=== PATIENT | female | born 1935 | race Caucasian/White ===

== ENCOUNTER 2017-09-04 05:00 | Inpatient (IN) | payer OTHER, MEDICARE ==
[~2017-09-04] VITALS: Ht 170.2 cm; Wt 95.9 kg
--- NOTE | 2017-09-04 05:08 | ED DYSPNEA/ASTHMA COMPLAINT ---
History of Present Illness General Chief Complaint: Dyspnea (COPD, CHF, Other) Stated Complaint: SOB Source: patient, old records, EMS, [facility] Exam Limitations: no limitations Vital Signs & Intake/Output Vital Signs & Intake/Output Vital Signs Date Time Temp Pulse Resp B/P B/P Pulse O2 O2 Flow FiO2 Mean Ox Delivery Rate 09/04 0700 97.9 90 24 152/65 96 Nasal 2.0L Cannula 09/04 0515 96 Nasal 2.0L Cannula 09/04 0505 98.1 110 24 135/63 96 Nasal 2.0L Cannula Allergies Coded Allergies: No Known Allergies (03/04/17) Reconcile Medications Arformoterol Tartrate (Brovana) 15 MCG/2 ML VIAL.NEB 2 ML NEB BID COPD ( Reported) Aspirin (Aspirin*) 81 MG TAB.CHEW 1 TAB PO DAILY PROPHYLAXIS (Reported) Atorvastatin Calcium 80 MG TABLET 1 TAB PO DAILY HIGH CHOLESTEROL (Reported) Budesonide (Pulmicort) 0.5 MG/2 ML AMPUL.NEB 1 Vial INH/JULIA BID COPD ( Reported) Clopidogrel Bisulfate (Plavix) 75 MG TABLET 1 TAB PO DAILY PROPHYLAXIS ( Reported) Furosemide (Lasix) 40 MG TABLET 1 TAB PO DAILY CHF (Reported) Insulin Regular (Novolin R Inj) 1,000 UNITS/10 ML NATY 0 UNITS SC SEE ADMIN CRITERIA DIABETES (Reported) Lactulose 10 GRAM/15 ML SOLUTION 30 ML PO BID LAXATIVE (Reported) Melatonin 3 MG TABLET 1 TAB PO QPM INSOMNIA (Reported) Mirtazapine 7.5 MG TABLET 1 TAB PO QPM DEPRESSION (Reported) Montelukast Sodium (Singulair) 10 MG TABLET 1 TAB PO DAILY ALLERGIES ( Reported) Nebivolol HCl (Bystolic) 2.5 MG TABLET 1 TAB PO DAILY HTN (Reported) Pantoprazole Sodium 40 MG TABLET.DR 1 TAB PO DAILY GERD (Reported) Roflumilast (Daliresp) 500 MCG TABLET 1 TAB PO DAILY COPD (Reported) Sennosides/Docusate Sodium (Senexon-S Tablet) 8.6 MG-50 MG TABLET 2 TAB PO DAILY CONSTIPATION (Reported) Triage Nurses Notes Reviewed? yes HPI: Patient was diagnosed with pneumonia yesterday. Patient received a gram of Rocephin IM and then was started on Levaquin. Tonight patient had increasing difficulty breathing. She denies any chest pain. Positive productive cough. No fevers or chills. Patient was given a nebulizer without relief so 911 was contacted. Patient received a DuoNeb en route and is currently feeling better however she still does feel short of breath. She denies any fevers or chills. There is no anorexia. There is no nausea or vomiting. Patient has O2 dependent COPD. (Kade DEE,Emanuel Lopez) Past History Travel History Traveled to [place] past 21 day No Medical History Any Pertinent Medical History? see below for history Neurological: DYSPHAGIA EENT: L EYE BLINDNESS Cardiovascular: CAD, CHF, hypertension, hyperlipidemia, PACEMAKER Respiratory: COPD Gastrointestinal: GERD Endocrine: TYPE I DM Surgical History Surgical History: non-contributory Psychosocial History What is your primary language Maori Tobacco Use: Quit >30 days ago ETOH Use: denies use Illicit Drug Use: denies illicit drug use Family History Hx Contributory? No (Emanuel Braun MD) Review of Systems Review of Systems Constitutional: Reports: no symptoms. EENTM: Reports: no symptoms. Respiratory: Reports: see HPI, cough, short of breath. Cardiovascular: Reports: no symptoms. GI: Reports: no symptoms. Genitourinary: Reports: no symptoms. Musculoskeletal: Reports: no symptoms. Skin: Reports: no symptoms. Neurological/Psychological: Reports: no symptoms. Hematologic/Endocrine: Reports: no symptoms. Immunologic/Allergic: Reports: no symptoms. All Other Systems: Reviewed and Negative (Kade DEE,Emanuel Lopez) Physical Exam Physical Exam General Appearance: well developed/nourished, alert, awake, moderate distress Head: atraumatic, normal appearance Eyes: Bilateral: PERRL, EOMI. Ears, Nose, Throat: normal pharynx, normal ENT inspection, hearing grossly normal Neck: normal inspection, supple, full range of motion, JVD Respiratory: crackles, rhonchi, wheezing Cardiovascular: regular rate/rhythm, normal peripheral pulses Gastrointestinal: normal bowel sounds, soft, non-tender, no organomegaly Extremities: normal capillary refill, pedal edema Neurologic/Psych: no motor/sensory deficits, awake, alert, oriented x 3, normal mood/affect Lymphatic: no anterior cervical puja Core Measures ACS in differential dx? No CVA/TIA Diagnosis No Sepsis Present: No Sepsis Focused Exam Completed? No (Emanuel Braun MD) Progress Differential Diagnosis: asthma, bronchitis, CHF, COPD, pulmonary embolism, pneumonia Plan of Care: Orders Procedure Date/time Status Regular Diet 09/04 B Active Patient Data 09/04 840 Active OXYGEN SETUP (GEN) 09/05 823 Active Saline Lock 09/05 823 Active Admit to inpatient 09/05 823 Active Vital Signs 09/05 823 Active Activity/Ambulation 09/05 823 Active Code Status 09/05 823 Active BLOOD CULTURE 09/04 654 Active BLOOD CULTURE 09/05 651 Active TYPE & SCREEN (NOT X-MATCH) 09/05 639 Active URINALYSIS 09/04 506 Active TROPONIN LEVEL 09/04 506 Complete COMPREHENSIVE METABOLIC PANEL 09/04 506 Complete CBC WITHOUT DIFFERENTIAL 09/04 506 Complete EKG 09/04 506 Active Laboratory Tests 09/04/17 0542: Anion Gap 13, Estimated GFR > 60, BUN/Creatinine Ratio 16.7, Glucose 86, Calcium 8.0 L, Total Bilirubin 0.6, AST 15, ALT 21, Alkaline Phosphatase 171 H, Troponin I < 0.01, Total Protein 4.9 L, Albumin 2.5 L, Globulin 2.4, Albumin/ Globulin Ratio 1.0 L, CBC w Diff MAN DIFF ORDERED, RBC 2.80 L, MCV 91.8, MCH 30.5, MCHC 33.2, RDW 14.6 H, MPV 7.2 L, Gran % 84.3 H, Lymphocytes % 10.0 L, Monocytes % 5.4, Eosinophils % 0.3, Basophils % 0, Absolute Granulocytes 13.3 H , Segmented Neutrophils 80 H, Absolute Lymphocytes 1.6, Lymphocytes 11 L, Monocytes 8, Absolute Monocytes 0.9 H, Eosinophils 1, Absolute Eosinophils 0.1, Absolute Basophils 0, Platelet Estimate ADEQUATE, Polychromasia 1+, Poikilocytosis 1+, Basophilic Stippling 1+, Ovalocytes 1+, Fld Total RBCs Counted 100 Microbiology 09/04 699 BLOOD: Blood Culture - RECD 09/05 651 BLOOD: Blood Culture - ORD 09/05 651 BLOOD: Blood Culture - ORD 09/04 649 BLOOD: Blood Culture - RECD Diagnostic Imaging: Viewed by Me: Radiology Read. Discussed w/RAD: Radiology Read. CXR Impression: PATIENT: TAYO DAIGLE PRESENT AGE: 82 PATIENT ACCOUNT NO: [id number] : 36 LOCATION: [facility] ORDERING PHYSICIAN: Emanuel Braun MD SERVICE DATE: 09/04/17 EXAM TYPE: RAD - XRY- PORTABLE CHEST XRAY EXAMINATION: XR PORTABLE CHEST CLINICAL INFORMATION: Productive cough. Shortness of breath. COMPARISON: Chest x-ray March 04, 2017 TECHNIQUE: Portable frontal view of the chest was obtained. 5:35 AM FINDINGS: Heart size enlarged. Pacemaker leads unchanged position in right atrium and right ventricle. There is calcifications of aortic arch. Lung volume is low. This causes crowding of the bronchovascular markings. There is perihilar density , greater on the right than the left, exaggerated also by the low inspiratory effort but underlying infiltrate in right upper lobe may be present as this is the area of maximal parenchymal density extending along the minor fissure. IMPRESSION: 1. Low inspiratory effort. Perihilar lung opacities, greater on right than left, which can be due to the low inspiratory effort but underlying infiltrate not excluded. 2. Enlarged heart. Pacemaker leads unchanged position since prior study. DICTATED BY: Donaldo Jean Baptiste MD DATE/TIME DICTATED:09/04/17599 BOOM CRANE OPERATOR:ERICH DATE/TIME TRANSCRIBED:09/04/17599 CONFIDENTIAL, DO NOT COPY WITHOUT APPROPRIATE AUTHORIZATION. <Electronically signed in Other Vendor System> SIGNED BY: Donaldo Jean Baptiste MD 09/04/17605 Initial ED EKG: NSR, LBBB, nonspecific ST T wave chg Prior EKG: unchanged Hand-Off Endorsed To: Charles Keating MD Endorsed Time: 699 Pending: other (HOSPITALIST CALL BACK) (Kade DEE,Emanuel Lopez) Departure Departure Disposition: STILL A PATIENT Condition: Stable Clinical Impression Primary Impression: COPD exacerbation Secondary Impressions: Anemia Referrals: Ricky Hull MD (PCP/Family) Departure Forms: Customer Survey General Discharge Information Admission Note Documentation of Exam: Documentation of any treatments & extenuating circumstances including Concerns Regarding Discharge (functional status, medication knowledge or non-compliance, living conditions, etc.) that warrant an admission rather than observation: [ Patient has been on antibiotics and if her symptoms are worsening. Patient has elevated white blood cell count. Patient is also anemic. Patient will need admission to the hospital for IV antibiotics, nebulizers, pulmonary consultation , respiratory treatments] (Emanuel Braun MD) Admission Note Spoke With: Nat DEE,Lucia Mcnamara Documentation of Exam: Documentation of any treatments & extenuating circumstances including Concerns Regarding Discharge (functional status, medication knowledge or non-compliance, living conditions, etc.) that warrant an admission rather than observation: (Rishabh DEE,Charles) Critical Care Note Critical Care Note Critical Care Time: non-applicable (Kade DEE,Emanuel Lopez)
[2017-09-04 05:51] LABS: ABSOLUTE BASOPHIL COUNT 0 /CUMM (0.0-0.2); ABSOLUTE EOSINOPHIL COUNT 0.1 /CUMM (0.0-0.7); ABSOLUTE GRANULOCYTE CT 13.3 /CUMM (1.4-6.5); ABSOLUTE LYMPH COUNT 1.6 /CUMM (1.2-3.4); ABSOLUTE MONOCYTE COUNT 0.9 /CUMM (0.10-0.60); BASOPHIL % 0 % (0.0-2.0); EOSINOPHIL % 0.3 % (0-5); GRANULOCYTE % 84.3 % (42.2-75.2); HEMATOCRIT 25.7 % (37-47); MEAN CORPUSCULAR HGB 30.5 PG (27.0-31.0); MEAN CORPUSCULAR HGB CONC 33.2 G/DL (33.0-37.0); MEAN CORPUSCULAR VOLUME 91.8 FL (81.0-99.0); MEAN PLATELET VOLUME 7.2 FL (7.4-10.4); PLATELET COUNT 271 /CUMM (130-400); RBC DISTRIBUTION WIDTH 14.6 % (11.5-14.5); WHITE BLOOD CELL COUNT 15.7 /CUMM (4.8-10.8)
[2017-09-04] MEDS ORDERED: NOVOLIN R100 UNIT/1 SC (06:01)
[2017-09-04] MEDS ORDERED: DALIRESP500 MC1 PO (06:02)
[2017-09-04] MEDS ORDERED: LASIX40 M1 PO (06:02)
[2017-09-04] MEDS ORDERED: LACTULOSE10 GM/153 PO (06:02)
[2017-09-04] MEDS ORDERED: ASPIRIN81 M4 PO (06:03)
[2017-09-04] MEDS ORDERED: BYSTOLIC2.5 M1 PO (06:03)
[2017-09-04] MEDS ORDERED: PLAVIX75 M1 PO (06:03)
[2017-09-04] MEDS ORDERED: PANTOPRAZOLE SO40 M1 PO (06:04)
[2017-09-04] MEDS ORDERED: BROVANA15 MCG/21 NEB (06:05)
[2017-09-04] MEDS ORDERED: PULMICORT0.5 MG/21 INH/SOL (06:06)
[2017-09-04] MEDS ORDERED: MELATONIN3 M4 PO (06:06)
--- NOTE | 2017-09-04 06:06 | RADIOLOGY REPORT ---
EXAMINATION: XR PORTABLE CHEST CLINICAL INFORMATION: Productive cough. Shortness of breath. COMPARISON: Chest x-ray March 04, 2017 TECHNIQUE: Portable frontal view of the chest was obtained. 5:35 AM FINDINGS: Heart size enlarged. Pacemaker leads unchanged position in right atrium and right ventricle. There is calcifications of aortic arch. Lung volume is low. This causes crowding of the bronchovascular markings. There is perihilar density, greater on the right than the left, exaggerated also by the low inspiratory effort but underlying infiltrate in right upper lobe may be present as this is the area of maximal parenchymal density extending along the minor fissure. IMPRESSION: 1. Low inspiratory effort. Perihilar lung opacities, greater on right than left, which can be due to the low inspiratory effort but underlying infiltrate not excluded. 2. Enlarged heart. Pacemaker leads unchanged position since prior study.
[2017-09-04] MEDS ORDERED: MIRTAZAPINE7.5 M1 PO (06:07)
[2017-09-04] MEDS ORDERED: ATORVASTATIN CA80 M1 PO (06:08)
[2017-09-04] MEDS ORDERED: SINGULAIR10 M1 PO (06:08)
[2017-09-04] MEDS ORDERED: SENEXON-S TABL1 EACH PO (06:08)
--- NOTE | 2017-09-04 09:52 | History & Physical ---
Ricci Glasgow 09/04/17 0951: General Information and HPI MD Statement: I have seen and personally examined TAYO DAIGLE and documented this H&P. The patient is a 82 year old F who presented with a patient stated chief complaint of [ shortness of breath.]. Source of Information: patient, family, [facility], nursing staff at [facility] Exam Limitations: dementia History of Present Illness: 82 year old woman from [facility],former smoker with left eye vision blindness, pmh significant for Alzheimer's, COPD on 3LNC, CAD s/p CA and stent placement in 2014 on aspirin and plavix, bradycardia s/p ppm on, CHF,HTN,HLD, T1DM, GERD, incontinent at baseline, sent from [facility] for evaluation of shortness of breath. Patient was unable to give much of the details. On interview she endorsed that she had trouble breathing. Denied any chest pain/palpitations, abdominal pain. Per W10 patient was having worsening shortness of breath for which a CXR was done yesterday showing U/L infiltrate and she received a gram of Rocephin IM and then was started on Levaquin (one dose). Despite nebulization she continued to have difficulty breathing. Per nursing staff from [place] there is no documented fever however her daughter was informed she spiked a fever of 101 on sunday. At baseline she is forgetful, most of the days she is bedbound by choice as she complains of chronic back pain. When she does get up she is wheelchair bound. Apparently has good fluid intake but has poor appetite. Her last BM was yesterday. Allergies/Medications Allergies: Coded Allergies: No Known Allergies (03/04/17) Home Med list Arformoterol Tartrate (Brovana) 15 MCG/2 ML VIAL.NEB 2 ML NEB BID COPD ( Reported) Aspirin (Aspirin*) 81 MG TAB.CHEW 1 TAB PO DAILY PROPHYLAXIS (Reported) Atorvastatin Calcium 80 MG TABLET 1 TAB PO DAILY HIGH CHOLESTEROL (Reported) Budesonide (Pulmicort) 0.5 MG/2 ML AMPUL.NEB 1 Vial INH/JULIA BID COPD ( Reported) Clopidogrel Bisulfate (Plavix) 75 MG TABLET 1 TAB PO DAILY PROPHYLAXIS ( Reported) Furosemide (Lasix) 40 MG TABLET 1 TAB PO DAILY CHF (Reported) Insulin Regular (Novolin R Inj) 1,000 UNITS/10 ML NATY 0 UNITS SC SEE ADMIN CRITERIA DIABETES (Reported) Lactulose 10 GRAM/15 ML SOLUTION 30 ML PO BID LAXATIVE (Reported) Melatonin 3 MG TABLET 1 TAB PO QPM INSOMNIA (Reported) Mirtazapine 7.5 MG TABLET 1 TAB PO QPM DEPRESSION (Reported) Montelukast Sodium (Singulair) 10 MG TABLET 1 TAB PO DAILY ALLERGIES ( Reported) Nebivolol HCl (Bystolic) 2.5 MG TABLET 1 TAB PO DAILY HTN (Reported) Pantoprazole Sodium 40 MG TABLET.DR 1 TAB PO DAILY GERD (Reported) Roflumilast (Daliresp) 500 MCG TABLET 1 TAB PO DAILY COPD (Reported) Sennosides/Docusate Sodium (Senexon-S Tablet) 8.6 MG-50 MG TABLET 2 TAB PO DAILY CONSTIPATION (Reported) Compliance With Home Meds: GOOD Past History Travel History Traveled to [place] past 21 day No Medical History Neurological: DYSPHAGIA EENT: L EYE BLINDNESS Cardiovascular: CAD, CHF, hypertension, hyperlipidemia, PACEMAKER Respiratory: COPD Gastrointestinal: GERD Endocrine: TYPE I DM Isolation History: Standard Surgical History Surgical History: non-contributory Past Family/Social History Family History Relations & Conditions if any Relation not specified for: *No pertinent family history Psychosocial History ETOH Use: denies use Illicit Drug Use: denies illicit drug use Review of Systems Review of Systems Constitutional: Reports: see HPI. Exam & Diagnostic Data Last 24 Hrs of Vital Signs/I&O Vital Signs Date Time Temp Pulse Resp B/P B/P Pulse O2 O2 Flow FiO2 Mean Ox Delivery Rate 09/04 0919 83 20 132/88 98 Room Air 09/04 0700 97.9 90 24 152/65 96 Nasal 2.0L Cannula 09/04 0515 96 Nasal 2.0L Cannula 09/04 0505 98.1 110 24 135/63 96 Nasal 2.0L Cannula Intake & Output 09/04 1600 09/04 0800 09/04 0000 Intake Total 0 Output Total Balance 0 Intake, Oral 0 Patient 204 lb Weight Weight Reported by Patient Measurement Method Physical Exam General Appearance Alert, oriented X2 Skin circular ? implants on right upper back Skin Temp/Moisture Exam: Cool/Dry HEENT Atraumatic, left pupil size less that right pupil, very dry mucous membranes Neck Supple, No JVD Lymphatic Cervical nl Cardiovascular Regular Rate, Normal S1, Normal S2 Lungs b/l rhonchi, bibasilar crackles, scattered wheeze Abdomen Normal Bowel Sounds, Soft, diffuse tenderness to palpation ( pt complained wherever i put small pressure) Neurological Normal Speech, Normal Tone, Sensation Intact, Cranial Nerves 3-12 NL, strength 4/5 x4 ext Extremities No Edema, Normal Pulses Last 24 Hrs of Labs/Harris: Laboratory Tests 09/04/17 0542: Anion Gap 13, Estimated GFR > 60, BUN/Creatinine Ratio 16.7, Glucose 86, Calcium 8.0 L, Iron 26 L, TIBC 164 L, Ferritin Pending, Total Bilirubin 0.6, AST 15, ALT 21, Alkaline Phosphatase 171 H, Troponin I < 0.01, Uax-Z-Ernoqtmaspj Pept Pending, Total Protein 4.9 L, Albumin 2.5 L, Globulin 2.4, Albumin/Globulin Ratio 1.0 L, CBC w Diff MAN DIFF ORDERED, RBC 2.80 L, MCV 91.8, MCH 30.5, MCHC 33.2, RDW 14.6 H, MPV 7.2 L, Gran % 84.3 H, Lymphocytes % 10.0 L, Monocytes % 5.4, Eosinophils % 0.3, Basophils % 0, Absolute Granulocytes 13.3 H, Segmented Neutrophils 80 H, Absolute Lymphocytes 1.6, Lymphocytes 11 L, Monocytes 8, Absolute Monocytes 0.9 H, Eosinophils 1, Absolute Eosinophils 0.1, Absolute Basophils 0, Platelet Estimate ADEQUATE, Polychromasia 1+, Poikilocytosis 1+, Basophilic Stippling 1+, Ovalocytes 1+, Fld Total RBCs Counted 100 Microbiology 09/04 1015 URINE ROUT: Legionella Antigen - COLB 09/04 1015 URINE ROUT: Streptococcus pneumoniae Antigen (M - COLB 09/04 0700 BLOOD: Blood Culture - RECD 09/04 0652 BLOOD: Blood Culture - ORD 09/04 0652 BLOOD: Blood Culture - ORD 09/04 0650 BLOOD: Blood Culture - RECD Diagnostic Data EKG Results Sinus, LBBB, Qtc 538 HR 110 CXR Results enlarged heart, pacemaker leads aortic arch calcification perihilar density R>L Assessment/Plan Assessment: 82 year old woman from [facility],former smoker with left eye vision blindness, pmh significant for Alzheimer's, COPD on 3LNC, CAD s/p CA and stent placement in 2015 on aspirin and plavix, bradycardia s/p ppm on, CHF,HTN,HLD, T1DM, GERD, incontinent at baseline, sent from [facility] for evaluation of shortness of breath. Sent from [facility] for Worsening shortness of breath. ED was afebrile, labs significant for leukocytosis with left shift, normocytic anemia, corrected calcium 8.8, ALP 171, proBNP 1150 . CXR significant for perihilar density R>L with underlying infiltrate. Assessement and plan Shortness of breath: Acute chronic COPD 2/2 to HCAP Will admit to gen med floor vitals per protocol TRC, supplemental o2,nebs q4hrs, continue symbicort, daliresp was given 125 mg solu medrol in ED, will continue with 60mg IV q12 will start IV unasyn 3g q6 f/up sputum/blood cultures, strep/urinary antigen Per [facility] staff, pt was seen by Dr. Felipe at [facility] in the past. Acute on chronic anemia could contribute to her shortness breath f/up iron studies, guaic stool CAD/CHF continue aspirin plavix, bisystolic continue lasix pt sees Dr. Chapin group, please obtain records for echo if possible Hyponatremia likely 2/2 to dehydration, encourage PO intake Isolated increased ALP given her symptoms of diffuse chronic pain and back pain, in the setting of advanced age and immobility paget's d/s is a possiblity, however further work up is needed if this is a concern. T1DM accuchecks, ISS CC3 diet DVt ppx sc lovenox DNR/DNI her daughter Jacobo Edwards has been updated and informed of her admission. She will be away for a few days. She can be reached at [phone] As Ranked By This Provider Problem List: 1. COPD exacerbation 2. Anemia Core Measures/Misc (11/19) Acute Coronary Syndrome ACS Diagnosis: No Congestive Heart Failure Congestive Heart Failure Diagnosis Yes Cerebrovascular Accident CVA/TIA Diagnosis: No VTE (View Protocol) VTE Risk Factors Age>40 No Mechanical VTE Prophylaxis d/t N/A MechProphylax Ordered No VTE Pharm Prophylaxis d/t NA PharmProphylax ordered Sepsis (View protocol) Sepsis Present: No If YES complete Sepsis Event Note If YES complete Sepsis Event Note Bay Li MD 09/04/17 1334: Core Measures/Misc (11/19) Sepsis (View protocol) If YES complete Sepsis Event Note If YES complete Sepsis Event Note Attending MD Review Statement Attending Statement Attending MD Statement: examined this patient, discuss w/resident/PA/MONEY MANAGER, agreed w/resident/PA/MONEY MANAGER, reviewed EMR data (avail), reviewed images, amended to note Attending Assessment/Plan: The patient is an 82 yo female who is a resident at [facility] ([place]) with h/o COPD, chronic hypoxic respiratory failure (on 3L nasal), Alzheimer's dementia, CAD (s/ p CA & stent 2014 & pacer), DM, chronic anemia, GERD, HTN, CHF who presented in the ED with c/o dyspnea and cough. The patient is a poor historian. In the ED the patient received aerosol and IV Solumedrol. CXR showed possible infiltrate. The patient's family indicated that she had a temperature of [address] [facility] (was not documented by [facility]). Physical Exam: VS: T 98.1, P 110-90, R 24, BP 152/65, PO 96% 2L HEENT: eyes- PERRLA, EOMI lisa- no lesions Neck: no JVD/bruits Chest: bilateral rhonchi and wheeze Cor: RRR nl S1, S1 w/o murm Abd: BS+, soft, NT Ext: tr edema, pulses 1+ Neuro: alert, poor historian, non-focal exam (gait not tested) Labs/Tests- as above Impression/Plan: #Healthcare Acquired Pneumonia- patient with possible infiltrate on CXR, fever reported by family and leukocytosis with left shift. No recent infections. Plan: Will admit to general medicine. Rose culture- check serum lactate level (does not appear septic). IV Antibiotics (received Rocephin at [facility], will Rx with Unasyn here - no Zithromax due to QTc prolongation. #COPD Exacerbation- patient with known COPD. Solumedrol given in ED. Plan: Will treat with IV Medrol/aerosol/mucinex, etc. Has seen Dr. Felipe in the past and will call pulmonary if not improving. #Chronic Hypoxic Respiratory Failure- the patient had subjective dyspnea and increased respiratory rate- back to baseline oxygen at time of my exam. #Acute on Chronic Anemia- H/H now 8.5/24.7 vs 10.0/30/7 5/18. Stool heme negative. Plan: Follow-up H/H, check stool for blood. Keep Hgb >=8. #CAD/CHF- h/o CAD/stent, etc. Followed by Dr. Chapin. Plan: Continue usual medications (ASA/Plavix). #Hyponatremia- mild, most likely secondary to mild volume depletion. Plan: Will follow as patient hydrates herself orally. #DM- sugars have been controlled per SNF. Plan: Follow glucoscans and cover appropriately.
--- NOTE | 2017-09-04 14:17 | Admission Certification ---
Admission Certification Certification Statement - As attending physician, I certify that at the time of - admission, based on clinical presentation, severity of - symptoms, need for further diagnostic testing and - therapeutic interventions, and risk of adverse outcomes - without in-hospital treatment, in my clinical assessment, - this patient requires an acute hospital stay for a minimum - of two nights or longer. I have also considered psychsocial - factors such as support system, advanced age, financial - issues, cognitive issues, and failed out-patient treatments, - past re-admission history, safety of patient, and lack of - compliance as applicable. Specific rationale supporting this admission is: The patient presensts with dyspnea and evidence of pneumonia/COPD exacerbation, chronic hypoxic respiratory failure with acute dyspnea. Needs admission for close respiratory monitoring IV antibiotics/Solumedrol, aerosol.
[2017-09-04 14:43] VITALS: BP 124/68
[2017-09-04 22:53] VITALS: BP 150/66
[2017-09-05 06:34] VITALS: BP 138/72
[2017-09-05 07:36] LABS: ABSOLUTE BASOPHIL COUNT 0 /CUMM (0.0-0.2); ABSOLUTE EOSINOPHIL COUNT 0 /CUMM (0.0-0.7); ABSOLUTE GRANULOCYTE CT 8.1 /CUMM (1.4-6.5); ABSOLUTE LYMPH COUNT 0.3 /CUMM (1.2-3.4); ABSOLUTE MONOCYTE COUNT 0.2 /CUMM (0.10-0.60); BASOPHIL % 0 % (0.0-2.0); EOSINOPHIL % 0 % (0-5); GRANULOCYTE % 93.7 % (42.2-75.2); HEMATOCRIT 25.2 % (37-47); MEAN CORPUSCULAR HGB 30.8 PG (27.0-31.0); MEAN CORPUSCULAR HGB CONC 33.5 G/DL (33.0-37.0); MEAN CORPUSCULAR VOLUME 92.1 FL (81.0-99.0); MEAN PLATELET VOLUME 7.5 FL (7.4-10.4); RBC DISTRIBUTION WIDTH 14.4 % (11.5-14.5); RED BLOOD CELL CT 2.73 /CUMM (4.20-5.40)
--- NOTE | 2017-09-05 08:30 | PN- Housestaff ---
Subjective Follow-up For: Acute COPD excerbation Complaints: no complaints Subjective: Patient seen and examined at bedside. No acute events overnight. Afebrile. Patient is sitting in bed, nasal cannula in place, patient has a cough, dry, "smoker's cough" as she called it. Denies fever temperature night sweats chills shortness of breath. Review of Systems Constitutional: Reports: see HPI. EENTM: Denies: blurred vision, double vision. Cardiovascular: Denies: chest pain, orthopena. Respiratory: Reports: cough, wheezing. Gastrointestinal: Denies: abdominal pain, constipation, diarrhea, nausea. Objective Last 24 Hrs of Vital Signs/I&O Vital Signs Date Time Temp Pulse Resp B/P B/P Pulse O2 O2 Flow FiO2 Mean Ox Delivery Rate 09/05 1427 98.2 74 18 100/60 95 Nasal 2.0L Cannula 09/05 1340 98.0 71 18 128/58 96 Nasal 2.0L Cannula 09/05 0933 98 Nasal 2.0L Cannula 09/05 0800 Nasal 2.0L Cannula 09/05 0756 66 136/72 07/04 0634 97.6 66 20 138/72 97 Nasal 2.0L Cannula 09/05 0251 96 Nasal 2.0L Cannula 09/05 0000 Nasal 2.0L Cannula 09/04 2253 97.6 65 20 150/66 98 Nasal 2.0L Cannula 09/04 1800 Nasal 2.0L Cannula 09/04 1600 95 Nasal 2.0L Cannula Intake & Output 09/05 1600 07/04 0800 07/04 0000 Intake Total 1500 380 240 Output Total Balance 1500 380 240 Intake, IV 120 260 Intake, Oral 1380 120 240 Number 0 Bowel Movements Patient 203 lb Weight Weight Bed scale Measurement Method Physical Exam General Appearance: Alert, Oriented X3, Cooperative Skin: No Rashes Skin Temp/Moisture Exam: Warm/Dry HEENT: Atraumatic, EOMI Neck: Supple, No LAD Cardiovascular: Regular Rate, Normal S1, Normal S2 Lungs: Normal Air Movement, Bilateral Wheezing appreciated Abdomen: Normal Bowel Sounds, Soft Extremities: No Cyanosis, Normal Pulses, No Tenderness/Swelling Assessment/Plan Assessment: 82-year-old female with past medical history of COPD on 3 L oxygen at home, coronary artery disease, CHF, hypertension, hyperlipidemia, type 1 diabetes, MELISSA , sent from [facility] for evaluation of shortness of breath. #Shortness of Breath Pateint has history of COPD, is currently experiencing an acute exacerbation of COPD possibly due to HCAP. Has been smoking nearly PPD since the age of 15. Patient has chronic anemia. Plan: - Supplemental O2 -Solu-Medrol 60mg IV, -Nebulizer Treatments -Symbicort #HCAP CXR on 09/04/17, significant for perihilar density. WBC on admission 15.7. Fever of 101F at home as reported by daughter Plan: -Continue Unasyn 3g q6 -Legionella and S. pneumo urinary antigen -Suptum cultures #Cough Dry, non-productive cough Plan: Guaifenesin #Anemia of Chronic Disease Hemoglobin has ranged between 9.4-11.5 prior to current hositalization. Currently ranging from 8.5-8.4. Iron = 26, TIBC = 164, Ferritin = 334. Patient is currently stable. Plan: -Will continue to monitor for symptoms. #CAD/CHF plan: -Continue Aspirin, Plavis, Bisystolic, Lasix #T1DM Plan: -Accuchecks -Sliding Scale Insulin Problem List: 1. COPD exacerbation Pain Ratin Pain Location: N/A Pain Goal: Remain pain free Pain Plan: N/A Tomorrow's Labs & Rationales: Urinary S. Pneumo and Legionella Antigen, + Sputum Cultures, since they were not completed today
[2017-09-05 09:53] LABS: WHITE BLOOD CELL COUNT 8.6 /CUMM (4.8-10.8)
[2017-09-05 13:40] VITALS: BP 128/58
[2017-09-05 14:27] VITALS: BP 100/60
--- NOTE | 2017-09-05 16:21 | PN- Att Addend ---
Attending Addendum Attending Brief Note Patient seen and examined, not feeling well. She has a significant amount of cough and she is also feeling shortness of breath due to cough. It is mostly a dry cough. Vital Signs Date Time Temp Pulse Resp B/P B/P Pulse O2 O2 Flow FiO2 Mean Ox Delivery Rate 09/05 1427 98.2 74 18 100/60 95 Nasal 2.0L Cannula 09/05 1340 98.0 71 18 128/58 96 Nasal 2.0L Cannula 09/05 0933 98 Nasal 2.0L Cannula 09/05 0800 Nasal 2.0L Cannula 09/05 0756 66 136/72 09/05 0634 97.6 66 20 138/72 97 Nasal 2.0L Cannula 09/05 0251 96 Nasal 2.0L Cannula 09/05 0000 Nasal 2.0L Cannula 09/04 2253 97.6 65 20 150/66 98 Nasal 2.0L Cannula 09/04 1800 Nasal 2.0L Cannula on exam; awake, nad. cv; s1, s2, rrr resp; + exp wheeze b/l abd; soft, nt, bs+ ext; trace edema Laboratory Tests 09/05 07 Chemistry Sodium (137 - 145 mmol/L) 136 L Potassium (3.5 - 5.1 mmol/L) 4.5 Chloride (98 - 107 mmol/L) 94 L Carbon Dioxide (22 - 30 mmol/L) 27 Anion Gap (5 - 16) 16 BUN (7 - 17 mg/dL) 21 H Creatinine (0.5 - 1.0 mg/dL) 1.0 Estimated GFR (>60 ml/min) 53 L BUN/Creatinine Ratio (7 - 25 %) 21.0 Hematology CBC w Diff NO MAN DIFF REQ WBC (4.8 - 10.8 /CUMM) 8.6 RBC (4.20 - 5.40 /CUMM) 2.73 L Hgb (12.0 - 16.0 G/DL) 8.4 L Hct (37 - 47 %) 25.2 L MCV (81.0 - 99.0 FL) 92.1 MCH (27.0 - 31.0 PG) 30.8 MCHC (33.0 - 37.0 G/DL) 33.5 RDW (11.5 - 14.5 %) 14.4 Plt Count (/CUMM) MPV (7.4 - 10.4 FL) 7.5 Gran % (42.2 - 75.2 %) 93.7 H Lymphocytes % (20.5 - 51.1 %) 4.0 L Monocytes % (1.7 - 9.3 %) 2.3 Eosinophils % (0 - 5 %) 0 Basophils % (0.0 - 2.0 %) 0 Absolute Granulocytes (1.4 - 6.5 /CUMM) 8.1 H Absolute Lymphocytes (1.2 - 3.4 /CUMM) 0.3 L Absolute Monocytes (0.10 - 0.60 /CUMM) 0.2 Absolute Eosinophils (0.0 - 0.7 /CUMM) 0 Absolute Basophils (0.0 - 0.2 /CUMM) 0 A/P; 82 y/o F with pmh sig for COPD, chronic hypoxic respiratory failure (on 3L nasal), Alzheimer's dementia, CAD (s/p AK & stent 2015 & pacer), DM, chronic anemia, GERD, HTN, CHF admitted with acute COPD exacerbation as well as possibility of pneumonia. Continue current dose of IV steroids and antibiotics. Please add Robitussin for the cough. Continue TRC nebs, inhalers and other current medications. Follow-up on all the cultures. Patient on Lovenox for DVT prophylaxis.
[2017-09-05 22:41] VITALS: BP 120/60
[2017-09-06 07:03] VITALS: BP 134/70
--- NOTE | 2017-09-06 07:29 | PN- Housestaff ---
See Addendum Subjective Follow-up For: SOB Complaints: no complaints Subjective: Patient seen and examined at bedside. No acute events overnight. Afebrile. Patient sitting in bed eating breakfast, has no complaint of today. Patient states she had received 2 breathing treatments this morning so far and they have been helping she feels breather is better, but states as soon as she moves he will start to hear her wheezing again. States her cough has improved thanks to Tony, "the trick is you cant drink water after it". Review of Systems Constitutional: Denies: chills, diaphoresis, fever. Cardiovascular: Denies: chest pain, palpitations. Respiratory: Reports: cough, short of breath, wheezing. Gastrointestinal: Denies: abdominal pain, constipation, diarrhea, changes in stool, vomiting. Objective Last 24 Hrs of Vital Signs/I&O Vital Signs Date Time Temp Pulse Resp B/P B/P Pulse O2 O2 Flow FiO2 Mean Ox Delivery Rate 09/06 1404 97.8 77 18 118/62 98 Nasal 2.0L Cannula 09/06 0934 97 Nasal 2.0L Cannula 09/06 0800 80 134/70 07/05 0800 95 Nasal 2.0L Cannula / 0703 98.3 80 20 134/70 95 07/05 0359 98 Nasal 2.0L Cannula / 0000 Nasal 2.0L Cannula 09/05 2241 97.4 114 19 120/60 97 Nasal 2.0L Cannula / 1810 97 Nasal 2.0L Cannula 09/05 1600 94 Nasal 2.0L Cannula Intake & Output / 1600 07/05 0800 07/05 0000 Intake Total 750 480 100 Output Total 500 100 Balance 250 480 0 Intake, IV 150 100 Intake, Oral 600 480 Number 1 Bowel Movements Output, Urine 500 100 Patient 206 lb Weight Physical Exam General Appearance: Alert, Oriented X3, Cooperative Skin: No Rashes HEENT: Atraumatic, EOMI Neck: Supple, No LAD Cardiovascular: Normal S1, Normal S2 Lungs: Normal Air Movement, Bilateral wheezing appreciated, improved compared to yesterday Abdomen: Normal Bowel Sounds, Soft, No Tenderness Extremities: No Cyanosis, No Edema, Normal Pulses Assessment/Plan Assessment: 82-year-old female with past medical history of COPD on 3 L oxygen at home, coronary artery disease, CHF, hypertension, hyperlipidemia, type 1 diabetes, MELISSA , sent from [facility] for evaluation of shortness of breath. #Shortness of Breath Pateint has history of COPD on 3.0 L of O2 for chronic hypoxia, is currently experiencing an acute exacerbation of COPD possibly due to HCAP. Has been smoking nearly PPD since the age of 15. Patient has chronic anemia. Plan: - Supplemental O2 - Solu-Medrol 40mg IV, will taper off as patient continues to improve - Nebulizer Treatments - Symbicort #HCAP CXR on 09/04/17, significant for perihilar density. WBC on admission 15.7. Fever of 101F at home as reported by daughter. Legionella and S. pneuo urinary antigens are negative. Patient is afebrile, respiratory symptoms are improving, cough and wheezing are still present. Plan: -Continue Unasyn 3g q6 #Cough Dry, non-productive cough. Improving Plan: Guaifenesin #Anemia of Chronic Disease Hemoglobin has ranged between 9.4-11.5 prior to current hositalization. Currently ranging from 8.5-8.4. Iron = 26, TIBC = 164, Ferritin = 334. Patient is currently stable. Plan: -Will continue to monitor for symptoms. #CAD/CHF plan: -Continue Aspirin, Plavis, Bisystolic, Lasix #T1DM Plan: -Accuchecks -Sliding Scale Insulin Problem List: 1. COPD exacerbation Pain Ratin Pain Location: N/A Pain Goal: Remain pain free Pain Plan: N/A Tomorrow's Labs & Rationales: None
[2017-09-06 14:04] VITALS: BP 118/62
[2017-09-06 21:21] VITALS: BP 144/64
[2017-09-07 05:59] VITALS: BP 114/52
[2017-09-07] MEDS ORDERED: AUGMENTIN 875-1 EACH PO (07:25)
[2017-09-07] MEDS ORDERED: PREDNISONE10 M2 PO (07:25)
--- NOTE | 2017-09-07 07:27 | Patient Discharge Instructions ---
Discharge Instructions General Discharge Information You were seen/treated for: Pneumonia, COPD Watch for these problems: Fever, chest pain, shortness of breath Special Instructions: Please take all medications as directed. Please follow-up with primary care. Diet Continue normal diet: Yes Activity Full Activity/No Limits: Yes Acute Coronary Syndrome Inclusion Criteria At DC or during hospital stay patient has or had the following: ACS DIAGNOSIS No Discharge Core Measures Meds if any: Prescribed or Continued at Discharge Meds if any: NOT Prescribed or Continued at Discharge Congestive Heart Failure Inclusion Criteria At DC or during hospital stay patient has or had the following: CHF DIAGNOSIS No Discharge Core Measures Meds if any: Prescribed or Continued at Discharge Meds if any: NOT Prescribed or Continued at Discharge Cerebrovascular accident Inclusion Criteria At DC or during hospital stay patient has or had the following: CVA/TIA Diagnosis No Discharge Core Measures Meds if any: Prescribed or Continued at Discharge Meds if any: NOT Prescribed or Continued at Discharge Venous thromboembolism Inclusion Criteria VTE Diagnosis No VTE Type NONE VTE Confirmed by (Test) NONE Discharge Core Measures - Per Current guidelines, there needs to be overlap - treatment for the first 5 days of Warfarin therapy. - If discharged on Warfarin prior to 5 days of - overlap therapy, the patient will need to be - assessed for post discharge needs including - *Post discharge parental anticoagulation - *Warfarin and/or parental anticoagulation education - *Follow up date to check INR post discharge At least 5 days overlap therapy as Inpatient No Meds if any: Prescribed or Continued at Discharge Note: Overlap Therapy is Warfarin and Anticoagulant Meds if any: NOT Prescribed or Continued at Discharge
--- NOTE | 2017-09-07 07:50 | Discharge Summary ---
Visit Information Visit Dates Admission Date: 09/04/17 Discharge Date: 09/07/17 Hospital Course Course Attending Physician: Bay Li MD Primary Care Physician: Ricky Hull MD Hospital Course: Ms. 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 Admission DatA: ED was afebrile, labs significant for leukocytosis with left shift, normocytic anemia, corrected calcium 8.8, ALP 171, proBNP 1150 . CXR significant for perihilar density R>L with underlying infiltrate. She was admitted to general medicine and treated for the following problems: 1. HCAP 2. COPD exacerbation 3. Chronic respiratory failure 4. Anemia of chronic disease #HCAP/COPD exacerbation: Patient admitted with shortness of breath, leukocytosis with left shift, and imaging consistent with pneumonia. Patient is on 3 L oxygen at baseline. She was started on ampicillin/sulbactam because it was thought she was low risk for resistant organisms despite coming from [facility]. Blood culture and urinary antigens were negative. She was given a steroid taper as well. She will continue the steroid taper and a full course of antibiotics (continuing Augmentin for 3 more days). She can follow-up with pulmonology (Dr. Felipe). #Anemia of chronic disease: Patient was noted to be anemic on admission. Iron studies revealed low iron, low TIBC, and high ferritin, consistent with anemia of chronic disease. #Chronic medical problems: Her other home medications were continued. Allergies: Coded Allergies: No Known Allergies (03/04/17) Disposition Summary Disposition Principal Diagnosis: 1. HCAP Additional Diagnosis: 2. COPD exacerbation 3. Chronic respiratory failure 4. Anemia of chronic disease Discharge Disposition: SNF Discharge Instructions General Discharge Information Code Status: Do Not Resucitate/Intubat Patient's Diet: diabetic diet Patient's Activity: As tolerated Follow-Up Instructions/Appts: Please take all medications as directed. Please follow-up with primary care and pulmonology. Medications at Discharge Discharge Medications: Continue taking these medications: Insulin Regular (Novolin R Inj) 1,000 UNITS/10 ML NATY 0 Units Inject into fatty tissue SEE INSTRUCTIONS Comments: NOT GIVEN IN HOSPITAL INSULIN NOVOLOG GIVEN Roflumilast (Daliresp) 500 MCG TABLET 1 Tablet ORAL DAILY Comments: Last Taken: 09/07/17 Time: 0800 AM Furosemide (Lasix) 40 MG TABLET 1 Tablet ORAL DAILY Comments: Last Taken: 09/07/17 Time: 0800 AM Lactulose (Lactulose) 10 GRAM/15 ML SOLUTION 30 Milliliters ORAL TWICE DAILY Comments: NOT GIVEN IN HOSPITAL Aspirin (Aspirin*) 81 MG TAB.CHEW 1 Tablet ORAL DAILY Comments: Last Taken: 09/07/17 Time: 0800 AM Nebivolol HCl (Bystolic) 2.5 MG TABLET 1 Tablet ORAL DAILY Comments: Last Taken: 09/07/17 Time: 0800 AM Clopidogrel Bisulfate (Plavix) 75 MG TABLET 1 Tablet ORAL DAILY Comments: Last Taken: 09/07/17 Time: 0800 AM Pantoprazole Sodium (Pantoprazole Sodium) 40 MG TABLET.DR 1 Tablet ORAL DAILY Comments: NOT GIVEN IN HOSPITAL Arformoterol Tartrate (Brovana) 15 MCG/2 ML VIAL.NEB 2 Milliliters Inhale Solution via Nebulizer TWICE DAILY Comments: NOT GIVEN IN HOSPITAL Budesonide (Pulmicort) 0.5 MG/2 ML AMPUL.NEB 1 Vial Inhale Solution TWICE DAILY Comments: Last Taken: 09/07/17 Time: 0800 AM Melatonin (Melatonin) 3 MG TABLET 1 Tablet ORAL Every night Comments: Last Taken: 09/06/17 Time: 9 PM Mirtazapine (Mirtazapine) 7.5 MG TABLET 1 Tablet ORAL Every night Comments: Last Taken: 09/07/17 Time: 9 PM Sennosides/Docusate Sodium (Senexon-S Tablet) 8.6 MG-50 MG TABLET 2 Tablet ORAL DAILY Comments: NOT GIVEN IN HOSPITAL Atorvastatin Calcium (Atorvastatin Calcium) 80 MG TABLET 1 Tablet ORAL DAILY Comments: Last Taken: 09/07/17 Time: 0800 AM Montelukast Sodium (Singulair) 10 MG TABLET 1 Tablet ORAL DAILY Comments: Last Taken: 09/07/17 Time: 0800 AM Start taking the following new medications: Amoxicillin/Potassium Clav (Augmentin 875-125 Tablet) 875 MG-125 MG TABLET 1 Tablet ORAL TWICE DAILY Qty = 6 No Refills Comments: NOT GIVEN IN HOSPITAL IV ABX GIVEN Prednisone (Prednisone) 10 MG TABLET 1 Tablet ORAL DAILY Qty = 10 No Refills Instructions: Please take 40mg on 09/08/17, 30mg on 09/09/17, 20mg on 09/10/17, 10mg on 09/11/17, then stop. Comments: NOT GIVEN IN HOSPITAL IV SOLUMEDROL GIVEN Copies To: Matteo DEE,Akira Segal; Della DEE,Ricky Borja Attending MD Review Statement Documenting Attending: Bay Li MD Other Findings: The patient was seen and agree with summary of care- returning to [place] today. Will taper steroids as OP.
--- NOTE | 2017-09-07 08:53 | PN- Housestaff ---
See Addendum Subjective Follow-up For: SOB Complaints: Wheezing Subjective: Patient seen and examined at bedside. Patient seems confused about events of last night, states she vomited 4-5 times because she had ate dinner to fast, but there are no nursing notes present to confirm hstory, current nurse states she had not recieved any information from night nurse regarding vomiting. Currently denies N/V, she had her last BM yesterday, was normal for patient. States her breathing has improved, and cough is getting better. Review of Systems Constitutional: Denies: chills, diaphoresis, fever. Cardiovascular: Denies: chest pain, palpitations, syncope. Respiratory: Reports: cough, short of breath, wheezing. Gastrointestinal: Denies: abdominal pain. Objective Last 24 Hrs of Vital Signs/I&O Vital Signs Date Time Temp Pulse Resp B/P B/P Pulse O2 O2 Flow FiO2 Mean Ox Delivery Rate 09/07 0833 98 Nasal 2.0L Cannula 09/07 0759 70 114/52 07/06 0559 97.5 70 20 114/52 94 Nasal 2.0L Cannula / 0000 94 Nasal 2.0L Cannula / 2121 98.3 68 20 144/64 99 Nasal 2.0L Cannula /05 1600 99 Nasal 2.0L Cannula /05 1600 98 Nasal 2.0L Cannula /05 1404 97.8 77 18 118/62 98 Nasal 2.0L Cannula /05 0934 97 Nasal 2.0L Cannula Intake & Output / 1600 07/06 0800 07/06 0000 Intake Total 320 370 Output Total Balance 320 370 Intake, IV 200 130 Intake, Oral 120 240 Patient 211 lb Weight Weight Bed scale Measurement Method Physical Exam General Appearance: Alert, Oriented X3, Cooperative Skin: Patient has a chronic rash present on lower extremities Skin Temp/Moisture Exam: Warm/Dry HEENT: Atraumatic, PERRLA, EOMI Neck: Supple, No LAD Cardiovascular: Regular Rate, Normal S1, Normal S2 Lungs: Normal Air Movement, bilateral wheezing present throughout lungs Abdomen: Normal Bowel Sounds, Soft, No Tenderness Neurological: Normal Speech Assessment/Plan Assessment: 82-year-old female with past medical history of COPD on 3 L oxygen at home, coronary artery disease, CHF, hypertension, hyperlipidemia, type 1 diabetes, MELISSA , sent from [facility] for evaluation of shortness of breath. #Shortness of Breath Pateint has history of COPD on 3.0 L of O2 for chronic hypoxia, is currently experiencing an acute exacerbation of COPD possibly due to HCAP. Has been smoking nearly PPD since the age of 15. Patient has chronic anemia. Plan: - Supplemental O2 @ 3.0 L - start Solu-Medrol 40mg IV Qdaily, from 40mg IV BID, will taper off as patient continues to improve - Nebulizer Treatments - Symbicort #HCAP CXR on 09/04/17, significant for perihilar density. WBC on admission 15.7. Fever of 101F at home as reported by daughter. Legionella and S. pneuo urinary antigens are negative. Patient is afebrile, respiratory symptoms are improving, cough and wheezing are still present. WBC within normal range 8.6 Plan: -Continue Unasyn, will d/c patient with Augmentin for 7 days #Cough Dry, non-productive cough. Improving Plan: Guaifenesin #Anemia of Chronic Disease Hemoglobin has ranged between 9.4-11.5 prior to current hositalization. Currently ranging from 8.5-8.4. Iron = 26, TIBC = 164, Ferritin = 334. Patient is currently stable. Plan: -Will continue to monitor for symptoms. #CAD/CHF plan: -Continue Aspirin, Plavis, Bisystolic, Lasix #T1DM Plan: -Accuchecks -Sliding Scale Insulin Problem List: 1. COPD exacerbation Pain Ratin Pain Location: N/A Pain Goal: Remain pain free Pain Plan: N/A Tomorrow's Labs & Rationales: None Discharge Plan Discharge Disposition: STR/NH ([place]) Stable for Discharge? Yes Anticipated Discharge (Day): today If Discharged Today/In 24 Hrs: W-10/discharge paper done
[2017-09-07 13:41] VITALS: BP 122/62
[2017-09-07 15:18] VITALS: BP 122/62
== END 2017-09-07 17:10 | DRG 190 ==
LOC: ERH 05:00 → 2NB 08:43 → ERHI 08:43 → ENRESERV 09:06 → ENTRNSPT 09:44 → 2NB 09:45 → EDTRNSPT 09:53 → EDTRNSPTSTS 09:53 → 2NB 10:09 → CMPTRNSPT 10:28 → ENPENDDIS 09-07 13:57 → 2NB 09-07 17:10
PROVIDERS: Emergency Medicine; Internal Medicine
DX: J44.0 Chronic obstructive pulmonary disease with (acute) lower respiratory infection (principal); J18.9 Pneumonia, unspecified organism; E87.1 Hypo-osmolality and hyponatremia; J96.11 Chronic respiratory failure with hypoxia; J44.1 Chronic obstructive pulmonary disease with (acute) exacerbation; Z99.81 Dependence on supplemental oxygen; Z87.891 Personal history of nicotine dependence; G30.9 Alzheimer's disease, unspecified; F02.80 Dementia in other diseases classified elsewhere, unspecified severity, without behavioral disturbance, psychotic disturbance, mood disturbance, and anxiety; I11.0 Hypertensive heart disease with heart failure; I50.9 Heart failure, unspecified; E10.9 Type 1 diabetes mellitus without complications; Z79.4 Long term (current) use of insulin; H54.40 Blindness, one eye, unspecified eye; H54.62 Unqualified visual loss, left eye, normal vision right eye; E86.0 Dehydration; Z95.0 Presence of cardiac pacemaker; I25.2 Old myocardial infarction; I25.10 Atherosclerotic heart disease of native coronary artery without angina pectoris; Z98.61 Coronary angioplasty status; Z79.01 Long term (current) use of anticoagulants; K21.9 Gastro-esophageal reflux disease without esophagitis; R13.10 Dysphagia, unspecified; Z66 Do not resuscitate; D63.8 Anemia in other chronic diseases classified elsewhere
CPT/HCPCS: 2NBSP; 36592; 71045; 82436; 86902; 86920; 86922; 87040; 87070; 87449; 87450; 93005; 93010; 96374; 97116-GO; 97161-GP; J1650; J2920; J2930; J3490